=== PATIENT | female | born 1985 | race Caucasian/White ===

== ENCOUNTER 2018-08-10 06:06 | Emergency (ER) | payer OTHER ==
--- NOTE | 2018-08-10 06:53 | ED ---
Skin Complaint - HPI Summary HPI Summary: Patient presents with what she thinks is a scabies rash. She has had dry skin with red scabbed bumps in various areas over the past month. These are noted on her shoulder, wrists, between her fingers and in her groin area. She admits itching is worse at night. Thinks she has seen bugs however her roommate states she does not see them. She shows me a picture of a white string and reports " this is what they look like". Also pulls up a pic of a worm under microscope on a slide via the internet and said, "they look like this" and goes on to report this worm is found in tropical areas and her roommate just got back from [place] - pt denies seeing anything abnormal with her stool and no fever, chills, ab pain, N/V/D. She also admits she has a strong bug phobia. Potential early exposure could've been while back in [place] for her mother's when she stayed with a friend who had a "dirty apartment" and then she stayed at a [employer]. She's had her apartment checked for bedbugs by an paper supervisor who said there were no signs of insects. She denies history of scabies. She does have a history of eczema and admits she has not used any moisturizer since her mother around time. She has use triamcinolone cream in the past which she feels works well for itching when her eczema flairs. Furthermore, she admits she pulled an "all nighter" last night (has not slept prior to arrival) to get her school work completed. She admits she was quite behind due to her mother's in June which caused her to miss school. She took her Adderall yesterday morning at about 7:30 along with a "quad espresso" and had been drinking caffeine throughout the day to help her get her work done. She denies using any other stimulants including cocaine or additional Adderall. Her mouth is dry this morning and she reports this is from taking a Flexeril prior to arrival as she has a history of back pain and wanted to try to sleep however she became increasingly concerned about her itching and possible scabies infection so came here for evaluation. She denies suicidal ideations and homicidal ideations. She admits she has not dealt with the of her mother and that she had to be the one to call everyone when she initially passed (has not been able to grieve). [facility] - h/o of 13 yrs of service until d/c'd d/t back injury. History of avila when she's tried escitalopram in the past. - History of Current Complaint Chief Complaint: EDRashSkinAbscess Time Seen by Provider: 08/10/18 06:16 Stated Complaint: RASH Hx Obtained From: Patient Pain Intensity: 5 - Allergy/Home Medications Allergies/Adverse Reactions: Allergies Allergy/AdvReac Type Severity Reaction Status Date / Time escitalopram [From Lexapro] Allergy Agitation Verified 08/10/18 06:51 PMH/Surg Hx/FS Hx/Imm Hx Previously Healthy: Yes Endocrine/Hematology History: Denies: Hx Anticoagulant Therapy, Hx Blood Disorders, Hx Diabetes, Hx Thyroid Disease, Hx Anemia, Autoimmune Disease Cardiovascular History: Denies: Hx Hypotension, Hx Hypertension History: Denies: Hx Acute Renal Failure, Hx Chronic Renal Failure Musculoskeletal History: Reports: Hx Back Problems Neurological History: Reports: Hx Migraine Psychiatric History: Reports: Hx Anxiety, Other Psychiatric Issues/Disorders - 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 L5-S1 NRD 2011 [facility] Infectious Disease History: No Infectious Disease History: Denies: Traveled Outside the [place] in Last 30 Days - Family History Known Family History: Positive: Other - mother just in 06/2018 - Social History Occupation: Student - [employer] Lives: Dormitory/Roommates Alcohol Use: Weekly Alcohol Amount: 4 Hx Substance Use: No Substance Use Type: Reports: Excessive Caffeine - within past 24 hours Hx Tobacco Use: Yes Smoking Status (MU): Current Every Day Smoker Type: eCigarettes Amount Used/How Often: 3-4x per week Review of Systems Positive: Fatigue - tired from being up all night. Negative: Fever, Chills Eyes: Negative ENT: Other - dry mouth Cardiovascular: Negative Respiratory: Negative Gastrointestinal: Negative Genitourinary: Negative Musculoskeletal: Negative Skin: Other - itching, scabs Neurological: Negative Psychological: Other - loss of mother - admits to "bug phobia" All Other Systems Reviewed And Are Negative: Yes Physical Exam Triage Information Reviewed: Yes Vital Signs On Initial Exam: Initial Vitals Temp Pulse Resp BP Pulse Ox 96.7 F 105 16 121/77 100 08/10/18 06:08 08/10/18 06:08 08/10/18 06:08 08/10/18 06:08 08/10/18 06:08 Vital Signs Reviewed: Yes Appearance: Positive: Well-Appearing, Well-Nourished, Pain Distress - appear anxious, fidgety and concerned about rash Skin: Positive: Warm, Skin Color Reflects Adequate Perfusion, Dry - diffuse dryness of skin w/ scant areas of scabs - no particular pattern as these are located over Rt deltoid region (3 spots), ventral wrist, 1 scab between finger webbing (dorsal aspect), a few scant spots on LE's B/L (again, no pattern), inguinal and mons pubic region (scant); no lesions, no papules, no pustules, no tracking, no scaling or plaques Head/Face: Positive: Normal Head/Face Inspection Eyes: Positive: Normal, EOMI, TORIE, Conjunctiva Clear. Negative: Conjunctiva Inflammed, Discharge ENT: Positive: Hearing grossly normal. Negative: Pharynx normal - oral mucosa and lips dry, Nasal congestion, Nasal drainage Neck: Positive: Supple, Nontender Respiratory/Lung Sounds: Positive: Breath Sounds Present. Negative: Stridor, Wheezes Cardiovascular: Positive: Normal, RRR Musculoskeletal: Positive: Normal, Strength/ROM Intact Neurological: Positive: Normal, Sensory/Motor Intact, Alert, Oriented to Person Place, Time, CN Intact II-III Psychiatric: Positive: Anxious - anxious and concerned, borders on irrational which appears to be fear/anxiety driven however clear/organized thoughts and is easily redirectable with education - denies SI/HI Diagnostics - Vital Signs Vital Signs Temp Pulse Resp BP Pulse Ox 08/10/18 06:08 96.7 F 105 16 121/77 100 - Laboratory Lab Statement: Any lab studies that have been ordered have been reviewed, and results considered in the medical decision making process. Course/Dx - Course Course Of Treatment: Pt presents w/ concern for scabies and admits to strong "bug phobia". Her condition is not clear however dry skin is present and w/ h/o eczema, this is more likely the cause of her itching (no insects or classic patterns of scabies but some lesions could follow this dx). Advised care for her dry skin first and if sx persist or worsen, she may then try permethrin. Urged f/u w/ dermatology if sx persist beyond these recommendations. Furthermore, escobar conversation about concerns for pt's level of anxiety. She appears to need sleep and is open to trying ativan today to get rest. Advised close f/u w/ [facility] or the [facility] where she is established and reports liking the care provided there ("they're great!") for grief counseling as she has not addressed this yet. She denies SI/HI and no active hallucinations reported or observed here in ED. Discussed w/ Dr. Salazar. Education about danger s/sx of when to return to ED which could be later today if she's not feeling better with rest or feels worse. No other medical hx to indicate in depth w/u at this time but would get labs if she returns. She may also get these outpt [facility]. Patient agrees w/ plan. - Diagnoses Provider Diagnoses: Anxiety, Rash Discharge - Sign-Out/Discharge Documenting (check all that apply): Patient Departure - Discharge Plan Condition: Stable Disposition: HOME Prescriptions: Permethrin 5% CREAM* 1 applic TOPICAL SEE INSTRUCTIONS #1 tube Patient Education Materials: Eczema (ED), Grief and Loss (ED), Scabies (ED) Referrals: Meg Heller [Primary Care Provider] - [facility] [[email or web address], APPLICATION, OTHER] - Yomaira Messer [Medical Doctor] - Additional Instructions: You appear to have dry skin - this could be from the cold weather, dry heat, multiple showers without moisturizer plus dehydration as you have consumed caffeine which is a diuretic. It is important that you hydrate your skin both inside and out. This may be done by drinking hydrating fluids (ie. water, coconut water, gatorade, soup brothes, etc) and avoid diuretics (ie. coffee, tea , cola, alcohol, etc) to prevent further fluid loss. Take an oatmeal bath and hydrate externally with sensitive skin lotion after then refrain from over bathing - reduce number of showers, water temp and time in an effort to reduce skin dryness. You may try topical hydrocortisone cream in trouble spots but avoid face, genitals. *If these interventions do not alleviate your symptoms and/or roommate develops similar symptoms and you would like to treat for scabies, a cream has been sent to your pharmacy. Use as directed. It is important that you follow-up with your PCP if this condition persists. *If worse, you may seek care at a [facility] - see contact information here We also discussed your recent grief and loss of your mother. It is important that you establish care to address this loss - you may go through your PCP or a counselor - contact information has been provided here if you area unable to attain services through the [facility]. *If you feel you are hearing or seeing things, have thoughts of harming yourself or others, call 911 or return to the ED - Billing Disposition and Condition Condition: STABLE Disposition: Home
[2018-08-10] MEDS: LORazepam TAB(*) 1 MG PO ONE ×2 (07:34→07:38)
[2018-08-10 07:37] VITALS: BP 123/79
== END 2018-08-10 07:36 | disposition home or self-care (01) ==
LOC: ED 06:06
DX: R21 Rash and other nonspecific skin eruption (principal); F41.9 Anxiety disorder, unspecified; F17.290 Nicotine dependence, other tobacco product, uncomplicated
CPT/HCPCS: 99282; A9270-GY